=== PATIENT | male | born 1965 | race African-American/Black ===

== ENCOUNTER → 2019-06-26 | Outpatient (CLI) | payer OTHER ==
[2016-04-17 12:00] VITALS: BP 124/77
[~2019-06-26] MED LIST: ASPI-612 PO; ASPI-630 PO; ATOR10TA PO; ATOR40TA59 PO; CELE200C PO; CLIN150C14 PO; DOXY100C2 PO; FERR325T72 PO; LISI-338 PO; LISI10TA2 PO; LISI1TAB23 PO; MELO7.5T29 PO; METF850T8 PO; METO25TA4 PO; MULT-121 PO; NITR0.4T24 SL; OMEP20CA5 PO; Oxycodone Hcl/Acetaminophen PO; PHEN37.53 PO; TAMS0.4C2 PO; TICA90TA PO; TRAZ-123 PO; Warfarin Sodium MC
--- NOTE | 2019-06-26 12:34 | CARD ---
MR#: [id number] Date of Study: 06/26/2019 Ordering Physician: FABIÁN ANDERSON, Referring Physician: FABIÁN ANDERSON, Tech: Kathy Polanco [facility] APPROVED REPORT EXAM: Two-dimensional and M-mode echocardiogram with Doppler and color Doppler. Other Information Quality : AverageHR: 63bpm Rhythm : NSRTechnically limited study due to morbid obesity. INDICATION HTN, CAD. Hx: Stemi, stents, HTN, HLP, DM. 2D DIMENSIONS RVDd3.9 (2.9-3.5cm)IVSd1.5 (0.7-1.1cm) Aortic Root(2D)3.8 (2.0-3.7cm)LVDd5.1 (3.9-5.9cm) LVOT Diameter2.3 (1.8-2.4cm)PWd1.4 (0.7-1.1cm) LVDs3.4 (2.5-4.0cm)FS (%) 32.0 % SV72.6 mlLVEF(%)59.8 (>50%) Aortic Valve AoV Peak Moises.120.6cm/Catalina Peak GR.5.8mmHg LVOT Peak Moises.82.3cm/sAVA (VMAX)2.72cm2 Mitral Valve MV E Tbvijrin36.7cm/sMV DECEL QFBO560gs MV A Xzpnhsoe38.2cm/sE/A Ratio0.9 MV A [id number] Pulmonary Valve PV Peak Ohvhvtur89.6cm/s Tricuspid Valve RAP [id number] Pulmonary Vein S1 Thuadmyv76.4cm/sD2 Ydvsczuz85.7cm/s PVa [id number] LEFT VENTRICLE The left ventricle is normal size. There is moderate concentric left ventricular hypertrophy. The Eje ction Fraction is 60-65%. The left ventricular systolic function is normal and the ejection fraction is within normal range. There is normal LV segmental wall motion. Transmitral Doppler flow pattern is Grade I-abnormal relaxation pattern. RIGHT VENTRICLE The right ventricle is normal size. The right ventricular systolic function is normal. ATRIA The left atrium size is normal. The right atrium size is normal. The interatrial septum is intact wit h no evidence for an atrial septal defect or patent foramen ovale as noted on 2-D or Doppler imaging. AORTIC VALVE The aortic valve is normal in structure and function. Doppler and Color Flow revealed no significant aortic regurgitation. There is no significant aortic valvular stenosis. MITRAL VALVE The mitral valve is normal in structure and function. There is no mitral valve stenosis. Doppler and Color-flow revealed trace mitral regurgitation. TRICUSPID VALVE The tricuspid valve is normal in structure and function. Doppler and Color Flow revealed no tricuspid valve regurgitation noted. Unable to assess PA pressures. There is no tricuspid valve prolapse or ve getation. There is no tricuspid valve stenosis. PULMONIC VALVE Doppler and Color Flow revealed trace pulmonic valvular regurgitation. There is no pulmonic valvular stenosis. GREAT VESSELS The aortic root measures at the upper limits of normal. The ascending aorta is normal in size. The IV C is normal in size and collapses >50% with inspiration. PERICARDIAL EFFUSION There is no evidence of significant pericardial effusion. Critical Notification Critical Value: No <Conclusion> The Ejection Fraction is 60-65%. The left ventricular systolic function is normal and the ejection fr action is within normal range. There is normal LV segmental wall motion. There is moderate concentric left ventricular hypertrophy. Signed by : Nii Hussein, Electronically Approved : 06/26/2019 12:34:03
== END | disposition home or self-care (01) ==
LOC: ECHO 09:37
PROVIDERS: ATTEND Internal Medicine Cardiovascular Disease
DX: I11.9 Hypertensive heart disease without heart failure (principal); I25.10 Atherosclerotic heart disease of native coronary artery without angina pectoris; E78.5 Hyperlipidemia, unspecified; E11.9 Type 2 diabetes mellitus without complications; Z95.5 Presence of coronary angioplasty implant and graft
CPT/HCPCS: 93306

== ENCOUNTER 2019-12-02 22:09 | Emergency (ER) | payer OTHER ==
[~2019-12-02] VITALS: Ht 177.8 cm; Wt 150.0 kg
[2019-12-02 22:20] VITALS: BP 187/89
[2019-12-02] MEDS ORDERED: HYDROcodone/APAP 5/325MG 1 TAB TABLET PO ONE (22:45)
--- NOTE | 2019-12-02 22:55 | RAD ---
3 view left knee HISTORY: Pain and swelling AP lateral oblique views There has been prior left knee total arthroplasty. The femoral and tibial components are aligned and well seated. There is postsurgical changes of the patella. There is no lytic destructive changes seen. IMPRESSION: No acute findings. Electronically signed by: Camilo Burciaga III, MD (12/02/2019 10:52 PM) [facility]
[2019-12-02] MEDS ORDERED: HYDR-3164 PO (23:14)
--- NOTE | 2019-12-02 23:14 | PHYS DOC ---
Past Medical History Past Medical History: CAD, Diabetes-Type II, High Cholesterol, Hypertension, [place] Past Surgical History: Knee Replacement, Other Additional Past Surgical Histo: hernia repair Smoking Status: Current Every Day Smoker Alcohol Use: Occasionally Drug Use: None General Adult EDM: Chief Complaint: KNEE SWELLING HPI: HPI: Patient is a 54 year old male presents with report of left knee pain and swellin g. 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 Reports had noticed he bumped his knee on side of vehicle and felt like it was more swollen and tender. Denies any tenderness to his calves. Patient does report he is on Plavix. Denies overutilization of the knee. Reports status post total arthroplasty on that knee with Dr. Marcano. Review of Systems: Review of Systems: Constitutional: Denies fever or chills Eyes: Denies redness or eye pain HENT: Denies nasal congestion or sore throat Respiratory: Denies cough or shortness of breath Cardiovascular: Denies chest pain or palpitations GI: Denies abdominal pain, nausea, or vomiting : Denies dysuria or hematuria Musculoskeletal: Reports left knee pain and swelling; denies left calf tenderness or pain Integument: Denies rash or skin lesions Neurologic: Denies headache, focal weakness or sensory changes Complete systems were reviewed and found to be within normal limits, except as documented in this note. Current Medications: Current Medications Medications (Trade) Dose Ordered Sig/Moise Start Time Stop Time Status Last Admin Dose Admin Acetaminophen/ Hydrocodone Bitart (Lortab 5/325) 1 tab 1X ONCE 12/02/19 22:45 12/02/19 22:46 DC 12/02/19 23:01 1 TAB Allergies: Allergies: Allergies Coded Allergies Type Severity Reaction Last Updated Verified Penicillins Allergy Intermediate 01/22/14 No apple Allergy Intermediate Nausea and Vomiting 01/22/14 Yes Physical Exam: PE: Constitutional: Well developed, well nourished, no acute distress, non-toxic appearance HENT: Normocephalic, atraumatic Eyes: Conjunctiva normal, no discharge Neck: Normal range of motion, no tenderness, supple Lungs & Thorax: No respiratory distress, equal chest rise and fall Skin: Warm, dry, no erythema, no rash Extremities: ROM intact, left anterior knee tenderness on palpation with mild swelling, anterior drawer intact, no calf tenderness Neurologic: Alert and oriented X 3, no focal deficits noted Psychologic: Affect normal, judgment normal EKG: EKG: [] Radiology/Procedures: Radiology/Procedures: PROCEDURE: KNEE LEFT 3V 3 view left knee HISTORY: Pain and swelling AP lateral oblique views There has been prior left knee total arthroplasty. The femoral and tibial components are aligned and well seated. There is postsurgical changes of the patella. There is no lytic destructive changes seen. IMPRESSION: No acute findings. Electronically signed by: Cong Burciaga III, MD (12/02/2019 10:52 PM) [facility] Course & Med Decision Making: Course & Med Decision Making Pertinent Imaging studies reviewed. (See chart for details) Patient presents with left knee pain. History status post TKA. Pain addressed. Ice applied. X-ray without acute process. No signs of DVT on physical exam. Jaspreet wrap and crutches provided. Patient stable for discharge with outpatient follow-up with PCP/orthopedics. Discussed findings and plan with patient, who acknowledges understanding and agreement. Dell Disclaimer: Dell Disclaimer: This electronic medical record was generated, in whole or in part, using a voice recognition dictation system. Splinting Splinting : Location: Left knee Pre-Made Type: JASPREET bandage Pre-Proc Neuro Vasc Exam: normal Post-Proc Neuro Vasc Exam: normal, unchanged from pre-exam Departure Departure Impression: Primary Impression: Knee pain, left Qualified Codes: M25.562 - Pain in left knee Disposition: 01 HOME, SELF-CARE Condition: STABLE Referrals: NO PCP (PCP) CONG MARCANO MD Patient Instructions: Crutch Use, Wipl-cr-Lljj, Knee Pain, Htjd-ma-Llqr, Knee Wraps (Elastic Bandage) and RICE Scripts Hydrocodone/Apap 5-325 (NORCO 5-325 TABLET) 1 Each Tablet 0.5-1 TAB PO PRN Q6HRS PRN for PAIN, #10 TAB 0 Refills Prov: TESSIE KELLER DO 12/02/19 Justicifation of Admission Dx: Justifications for Admission: Justification of Admission Dx: N/A TESSIE KELLER DO Dec 02, 2019 23:14
== END 2019-12-02 23:41 | disposition home or self-care (01) ==
LOC: ER 22:09
DX: M25.562 Pain in left knee (principal); R60.0 Localized edema; I11.9 Hypertensive heart disease without heart failure; E11.9 Type 2 diabetes mellitus without complications; E78.00 Pure hypercholesterolemia, unspecified; I25.2 Old myocardial infarction; F17.200 Nicotine dependence, unspecified, uncomplicated; Z98.890 Other specified postprocedural states; Z91.018 Allergy to other foods; Z79.02 Long term (current) use of antithrombotics/antiplatelets
CPT/HCPCS: 73562; 99283

== ENCOUNTER → 2020-03-29 | Outpatient (CLI) | payer OTHER ==
[~2020-03-29] MED LIST changes: -ASPI-612 PO; +ASPI-886 PO; +CLOP75TA PO; +HYDR-3164 PO; +LISI-334 PO
[2020-03-29 14:37] LABS: BASO # 0.1 x10^3/uL (0.0-0.2); BASO % 1 % (0-3); EOS # 0.2 x10^3/uL (0.0-0.7); EOS % 3 % (0-3); HEMATOCRIT 42.8 % (39.0-53.0); HEMOGLOBIN 13.8 g/dL (13.0-17.5); LYMPH # 1.8 x10^3/uL (1.0-4.8); LYMPH % 29 % (24-48); MEAN CORPUSCULAR HEMOGLOBIN 25 pg (25-35); MEAN CORPUSCULAR HGB CONC 32 g/dL (31-37); MEAN CORPUSCULAR VOLUME 76 fL (79-100); MONO # 0.5 x10^3/uL (0.0-1.1); MONO % 8 % (0-9); NEUT # 3.6 x10^3/uL (1.8-7.7); NEUT % 60 % (31-73); PLATELET COUNT 142 x10^3/uL (140-400); RED CELL DISTRIBUTION WIDTH 18.7 % (11.5-14.5); WHITE BLOOD COUNT 6.1 x10^3/uL (4.0-11.0)
--- NOTE | 2020-03-29 14:49 | EKG ---
[facility] [address] [place] [address] Test Date: 2020-03-29 Test Time: 14:45:39 Pat Name: NEAL EMERY Department: Room: Gender: Car Salesperson: MARY Mcmahon : 1965 Requested By: CONG MARCANO Order Number: [id number] Reading MD: Evan Reyez Measurements Intervals [place] Rate: 60 P: 152 IL: 190 QRS: 163 QRSD: 94 T: 176 QT: 368 QTc: 372 Interpretive Statements SINUS RHYTHM NONSPECIFIC ST T WAVE CHANGES Electronically Signed On 03-30-2020 16:31:08 CHANGE MANAGER by Evan Reyez
[2020-03-29 14:50] LABS: ALBUMIN 3.3 g/dL (3.4-5.0); C-REACTIVE PROTEIN 1.5 mg/L (0-3.3); CALCIUM 8.7 mg/dL (8.5-10.1); GFR 93.9; POTASSIUM 4.2 mmol/L (3.5-5.1)
--- NOTE | 2020-03-29 15:48 | RAD ---
PA and lateral chest x-rays HISTORY: Preoperative assessment prior to right knee replacement. FINDINGS: Heart size normal. Mediastinal silhouette is normal. No pneumothorax, pulmonary opacities or pleural effusions. Thoracic scoliosis and mild thoracic disc osteophytes. IMPRESSION: No acute process. Electronically signed by: Clovis Pérez MD (03/29/2020 3:45 PM) [facility]
== END ==
LOC: SURGPAT 13:29
PROVIDERS: ATTEND Orthopaedic Surgery
DX: Z01.818 Encounter for other preprocedural examination (principal); M17.12 Unilateral primary osteoarthritis, left knee; M25.78 Osteophyte, vertebrae; M41.84 Other forms of scoliosis, thoracic region
CPT/HCPCS: 71046; 80048; 82040; 82306; 83036; 85025; 85610; 85730; 86140; 87641; 93005

== ENCOUNTER → 2020-04-15 | Outpatient (CLI) | payer OTHER | LOC: LAB 14:12 | PROVIDERS: ATTEND Orthopaedic Surgery | DX: Z01.812 Encounter for preprocedural laboratory examination (principal); Z20.828 Contact with and (suspected) exposure to other viral communicable diseases | CPT/HCPCS: U0003 ==

== ENCOUNTER 2020-04-19 08:42 | Inpatient (IN) | payer OTHER ==
[2020-04-19] VITALS (8 sets, daily range): BP systolic 103–158; BP diastolic 47–95
[~2020-04-19] VITALS: Ht 175.3 cm; Wt 154.2 kg
[~2020-04-19 08:42] MED LIST changes: +ACETAMINOPHEN 500 MG TABLET PO PRN; +CELECOXIB 100 MG CAPSULE. PO PRN; +CLINDAMYCIN 900MG PREMIX 50 ML IV PRN; +MORPHINE SULFATE 5 MG, KETOROLAC 30MG VIAL 30 MG, ROPIVacaine 0.5% PF 60 ML, EPINEPHrin... INT ART ONE; +ROCURONIUM 50 MG/5 ML VIAL. ONE; +TRANEXAMIC ACID 1,000 MG in IV NS 50ML -- 1ST BAG INJ ONE; +TRANEXAMIC ACID 1,000 MG in IV NS 50ML -- 2ND BAG INJ ONE; +fentaNYL PF VIAL 100 MCG/2 ML VIAL ONE
[2020-04-19] MEDS ORDERED: ONDANSETRON PF 4 MG/2 ML VIAL. ONE (08:43)
[2020-04-19] MEDS ORDERED: PROPOFOL 10 MG/ML (20ML) VIAL. IV ONE (08:43)
[2020-04-19] MEDS ORDERED: LIDOCAINE 2% PF 5 ML VIAL. ONE ×2 (08:43→13:31)
[2020-04-19] MEDS ORDERED: DEXAMETHASONE SOD PHOS 4 MG/ML VIAL ONE (08:43)
[2020-04-19] MEDS ORDERED: SEVOFLURANE > 120 MINUTES. IH ONE (08:43)
[2020-04-19] MEDS ORDERED: SUCCINYLCHOLINE 200 MG/10 ML VIAL. ONE (08:49)
[2020-04-19] MEDS: IV RINGERS,LACTATED 1000ML 1,000 ML IV SCH ×2 (09:37→14:13)
[2020-04-19] MEDS: INSULIN LISPRO 100 UNIT/ML 3ML VIAL for OP,RR ONLY. SQ PRN ×2 (09:38→13:47)
--- NOTE | 2020-04-19 09:54 | PDOC1 ---
History and Physical Date of Admission Date of Admission DATE: 04/19/20 TIME: 09:49 Identification/Chief Complaint Chief Complaint Right knee osteoarthritis pain Source Source: Chart review, Patient History of Present Illness History of Present Illness 54-year-old man familiar to me with right knee osteoarthritis, unrelieved with nonoperative treatment. At this point, he is locating increased right knee pain that is now interfering with his quality of life and making it difficult to participate in desired activities. Unable to walk for exercise. He has failed modified activity, brace, NSAID's, and steroid injections. He had a left total knee arthroplasty previously which has done well other than he had a washout early for infection which resolved with the washout and antibiotics. Past Medical History Past Medical History Diabetes mellitus. Hypertension. High cholesterol. PSA 08/26. STEMI 04/27. Pneumovax 04/27. Cardiovascular: HTN, Hyperlipidemia Pulmonary: Asthma GI: GERD Heme/Onc: No pertinent hx Hepatobiliary: No pertinent hx Psych: No pertinent hx Musculoskeletal: Osteoarthritis Rheumatologic: No pertinent hx Infectious disease: No pertinent hx Renal/: No pertinent hx Endocrine: Diabetes Past Surgical History Past Surgical History: Hernia Repair, Total knee replacement Family History Family History: Cancer, Hypertension Social History Smoke: Quit ALCOHOL: occassional Drugs: None Current Medications Current Medications Current Medications Morphine Sulfate 5 mg/Ketorolac Tromethamine 30 mg/Ropivacaine 60 ml/Epinephrine HCl 0.5 mg/Sodium Chloride 100 ml @ 100 mls/hr 1X ONCE INT ART ; Start 04/19/20 at 08:00; Stop 04/19/20 at 08:59; Status DC Acetaminophen (Tylenol) 1,000 mg 1X PREOP PRN PO PRIOR TO PROCEDURE Last administered on 04/19/20at 09:29; Start 04/19/20 at 06:00; Stop 04/19/20 at 18:00 Clindamycin Phosphate 50 ml @ 100 mls/hr 1X PREOP PRN IV PRIOR TO PROCEDURE; Start 04/19/20 at 06:00; Stop 04/19/20 at 18:00 Tranexamic Acid 1000 mg/Sodium Chloride 60 ml @ 60 mls/hr 1X PERIOP ONCE INJ ; Start 04/19/20 at 06:00; Stop 04/19/20 at 06:59; Status DC Tranexamic Acid 1000 mg/Sodium Chloride 60 ml @ 60 mls/hr 1X PERIOP ONCE INJ ; Start 04/19/20 at 08:00; Stop 04/19/20 at 08:59; Status DC Celecoxib (CeleBREX) 200 mg OC PROC PRN PO PRE-OP Last administered on 04/19/20at 09:30; Start 04/19/20 at 06:00; Stop 04/19/20 at 18:00 Insulin Human Lispro (HumaLOG VIAL for OP,RR ONLY) 0-10 units PRN Q1HR PRN SQ PER PROTOCOL Last administered on 04/19/20at 09:38; Start 04/19/20 at 08:45; Stop 04/20/20 at 08:44 Rocuronium Elsberry (Zemuron) 50 mg STK-MED ONCE .ROUTE ; Start 04/19/20 at 08:42; Stop 04/19/20 at 08:42; Status DC Fentanyl Citrate (Fentanyl 2ml Vial) 100 mcg STK-MED ONCE .ROUTE ; Start 04/19/20 at 08:42; Stop 04/19/20 at 08:43; Status DC Sevoflurane (Ultane) 90 ml STK-MED ONCE IH ; Start 04/19/20 at 08:43; Stop 04/19/20 at 08:43; Status DC Propofol (Diprivan) 200 mg STK-MED ONCE IV ; Start 04/19/20 at 08:43; Stop 04/19/20 at 08:43; Status DC Lidocaine HCl (Lidocaine Pf 2% Vial) 5 ml STK-MED ONCE .ROUTE ; Start 04/19/20 at 08:43; Stop 04/19/20 at 08:43; Status DC Dexamethasone Sodium Phosphate (Decadron) 4 mg STK-MED ONCE .ROUTE ; Start 04/19/20 at 08:43; Stop 04/19/20 at 08:43; Status DC Ondansetron HCl (Zofran) 4 mg STK-MED ONCE .ROUTE ; Start 04/19/20 at 08:43; Stop 04/19/20 at 08:43; Status DC Succinylcholine Chloride (Anectine) 200 mg STK-MED ONCE .ROUTE ; Start 04/19/20 at 08:49; Stop 04/19/20 at 08:49; Status DC Ringer's Solution 1,000 ml @ 100 mls/hr Q10H IV Last administered on 04/19/20at 09:37; Start 04/19/20 at 09:30 Active Scripts Active Metoprolol Tartrate 25 Mg Tablet 1 Tab PO BID Reported Atorvastatin Calcium 40 Mg Tablet 80 Mg PO HS Lisinopril 20 Mg Tablet 20 Mg PO DAILY Clopidogrel (Clopidogrel Bisulfate) 75 Mg Tablet 75 Mg PO DAILY Metformin Hcl 850 Mg Tablet 500 Mg PO BID Aspirin 81 Mg Tab.chew 81 Mg PO Multiple Vitamins (Multivitamin) 1 Each Tablet 1 Each PO last dose 01/22/14 at 9 am next dose due 01/23/14 at 9 am Trazodone Hcl 100 Mg Tablet 100 Mg PO PRN QHS PRN Not given this hospitalization. May resume at home as ordered by doctor. Prilosec (Omeprazole) 20 Mg Capsule.dr 20 Mg PO DAILY Not given this hospitalization Protonix substituted. May resume at home as ordered by doctor. Allergies Allergies: Coded Allergies: Penicillins (Unverified Allergy, Intermediate, 04/19/20) apple (Verified Allergy, Intermediate, Nausea and Vomiting, 04/19/20) ANY HIGH ACID FRUITS) ROS Review of System ENT: Frequent headaches denies. Sudden loss of vision denies. Hearing loss none. Ringing in ears none. Nose bleeds no prior episodes. CARDIOLOGY: Palpitations none. Chest pain none. Claudication none. CONSTITUTIONAL: Fever denies . Chills denies. Weight gain denies. Loss of appetite denies. Fatigue denies. RESPIRATORY: Shortness of breath denies. Coughing up blood denies. Persistent cough none. Wheezing none. Orthopnea none. GASTROENTEROLOGY: Black, tarry stool denies. Heartburn denies. Blood in stool none. Diarrhea denies. Vomiting none. Black stools denies. UROLOGY: Blood in urine denies. Urinary frequency none. Urinary urgency none. Burning on urination denies. MUSCULOSKELETAL: Non-healing sores on the legs or feet denies. Swelling of the feet, hands, ankles and /or legs denies. Calf cramping with walking denies. Numbness of the feet or hands denies. DERMATOLOGY: Sores that do not heal denies. Rash none. Bruising denies. NEUROLOGY: Dizziness/lightheadedness denies. Double vision, temporary blindness denies. Speech abnormality none. Loss of consciousness none. HEMATOLOGY/LYMPH: Anemia denies. Physical Exam General: Alert, Cooperative HEENT: Atraumatic Lungs: Normal air movement Heart: RRR Abdomen: Soft Extremities: Other (The RIGHT knee shows a mildly antalgic gait. There is varus alignment. No masses. No detectable effusion. Tenderness on the joint lines. Range of motion is 3-105 degrees. There is crepitus with range of motion, and pain at the extremes of motion. The knee is stable to varus and valgus stress without subluxation or laxity. Muscle strength is slightly weak for the quadriceps 4+/5 which may be due to pain or avoidance, and does not seem neurogenic, and the muscle tone and bulk is slightly decreased. The hamstring strength is 5/5. The skin is normal with no scars, rashes, lesions or ulcers. Light touch sensation is intact. No edema and no varicosities. Dorsalis pedis pulse is intact and capillary refill is normal.) Skin: No significant lesion Neuro: Normal speech, Sensation intact Vitals Vitals Vital Signs Date Time Temp Pulse Resp B/P (MAP) Pulse Ox O2 Delivery O2 Flow Rate FiO2 04/19/20 09:25 98.5 68 20 98 98.5 04/19/20 09:20 185/90 Room Air Labs Labs Laboratory Tests Test 04/19/20 09:22 Glucose (Fingerstick) 145 mg/dL (70-99) Laboratory Tests Test 04/19/20 09:22 Glucose (Fingerstick) 145 mg/dL (70-99) Images Images [facility] [address] [place] [address] IMAGING REPORT Signed PATIENT: NEAL EMERY ACCOUNT: [id number] : 1965 LOCATION: [facility] AGE: 54 SEX: M EXAM STATUS: REG CLI ORD. PHYSICIAN: CONG MARCANO MD REASON: Rt knee pain and f/u left TKA in 2013 PROCEDURE: KNEE STANDING BILAT AP EXAM: Bilateral knees, 3 views. HISTORY: Pain. COMPARISON: 03/30/2019 FINDINGS: 3 views of both knees are obtained. There is a left knee arthroplasty in expected position. There is a small left knee effusion. There is enthesopathy along the left patella and there are corticated ossicles along the anterior left tibial metaphysis. There is severe medial compartment joint space narrowing and spurring involving the right knee. There is associated right genu varus. There is also mild right patellofemoral compartment spurring and trace right knee joint fluid. There is enthesopathy along the right patella. There are right knee joint loose bodies. IMPRESSION: 1. Left knee arthroplasty in expected position. There is a small left knee effusion which is fairly stable compared to the prior study. 2. Severe medial and mild patellofemoral compartment osteoarthritis of the right knee with joint loose bodies and genu varus. Electronically signed by: Silvia Wayne MD (03/10/2020 10:52 AM) [id number] DICTATED and SIGNED BY: SILVIA WAYNE MD DATE: 03/10/201051 VTE Prophylaxis Ordered VTE Prophylaxis Devices: Yes VTE Pharmacological Prophylaxi: Yes Assessment/Plan Assessment/Plan He has osteoarthritis of his right knee. We have previously discussed the waqas hamilton history of the condition as well as the risks, benefits, and alternatives to treatment. Given his failure of nonoperative measures and continued severe pain with loss of function, my recommendation is surgery. Plan for right total knee arthroplasty. We discussed the potential risks of infection, neurovascular injury, fracture, bleeding, blood clots, malalignment, need for revision surgery, or other potential surgical or anesthetic complications. I recommended the robotic NAVIO instrumentation and we discussed my reasoning. We also discussed postoperative treatment and expectations including dental antibiotic prophylaxis and residual numbness over the knee. All of his questions were answered and he desires to proceed with total knee replacement. He is here today for elective right total knee arthroplasty with robotic assistance. Justifications for Admission Other Justification CONG MARCANO MD Apr 19, 2020 09:54
[2020-04-19] MEDS ORDERED: VANCOMYCIN 1 GM VIAL. ONE ×2 (10:01→10:02)
[2020-04-19] MEDS ORDERED: TOBRAMYCIN POWDER 1.2 GM VIAL. ONE (10:02)
[2020-04-19] MEDS ORDERED: MORPHINE SULFATE 2 MG/ML VIAL. IV PRN (10:30)
[2020-04-19] MEDS ORDERED: ONDANSETRON PF 4 MG/2 ML VIAL. IV PRN (10:30)
[2020-04-19] MEDS ORDERED: HYDROmorphone 2 MG/ML VIAL IV PRN (10:30)
[2020-04-19] MEDS ORDERED: IV RINGERS,LACTATED 1000ML 1,000 ML IV SCH (10:30)
[2020-04-19] MEDS ORDERED: fentaNYL PF VIAL 100 MCG/2 ML VIAL IV PRN (10:30)
[2020-04-19] MEDS ORDERED: PROCHLORPERAZINE 10 MG/2 ML VIAL. IV PRN (10:30)
[2020-04-19] MEDS ORDERED: GLYCOPYRROLATE 1 MG/5 ML VIAL. ONE (11:09)
--- NOTE | 2020-04-19 13:17 | PDOC4 ---
Operative Note Operative Note Date of Procedure: April 19, 2020 Pre-Op Diagnosis: Unilateral primary osteoarthritis, right knee. M17.11 Post-Op Diagnosis: same Procedure: right total knee arthroplasty with patella resurfacing, robotic assisted, CPT 11065 Surgeon: Cong Brewer MD Hide Cooking Operator: ERNESTINA Avila Anesthesia: General EBL: 200 mL Specimens Obtained: right knee bone and soft tissue Complications: none Drains: Hemovac plus pain catheter Tourniquet time: 90 Minutes Tourniquet Pressure: 350 mm Hg Indications for Procedure: Knee arthritis pain, affecting quality of life, unrelieved by nonoperative management Findings: Severe osteoarthritis with bone on bone contact medially with full thickness cartilage loss in the patellofemoral and lateral compartments Implants: Ceron [employer] Nephew Journey II Total Knee System, Size 6 right bicruciate stabilized Journey II BCS Oxinium femoral component, size 6 right Journey nonpor ous tibial baseplate, size 5-6 13 mm right Journey II BCS XLPE articular insert, 38 mm oval Ana II resurfacing patellar component Procedure in Detail: The patient was identified in the preoperative holding area, and the correct right lower extremity was marked by me. The patient was taken to the operating room where the patient was anesthetized by the Department of Anesthesia. Preoperative antibiotics were given intravenously. Tranexamic acid 1 g was given intravenously for intraoperative hemostasis. A "time-out" procedure was performed. The patient was positioned supine on the operative table with a tourniquet on the upper right thigh. A right hip bump and heel bump were attached to the operating table for later intraoperative positioning. The right lower limb was thoroughly scrubbed, then sterile Chloraprep solution was applied, and the limb was draped in sterile fashion. The operating team wore exhaust ventilated hoods with Ule Personal Protection Toga Zippered Peel-Away protection system. An impervious stockinet and an adhesive drape were used such that the skin was entirely covered. The limb was exsanguinated with an Esmarch bandage, and the tourniquet was inflated. A midline skin incision was made with a scalpel using the patella and tibial tubercle as landmarks. Electrocautery was used for hemostasis. My family readiness support assistant used rake retractors and a laparotomy sponge. A medial parapatellar arthrotomy incision was used with extension into the distal quadriceps tendon. The patella was retracted laterally and Hohmann retractors were now used by my family readiness support assistant. Excess synovium, the menisci, and the cruciate ligaments were resected sharply. A periarticular multimodal ropivacaine anesthetic injection was used in the suprapatellar pouch and distal quadriceps muscle. The patella was everted and exposed. The patella thickness was measured with a caliper, and then cut freehand with a saw, using caliper measurements to assess the resection. The lateral retinaculum was partially released from the lateral patella using electrocautery. Rongeurs were used to make sure there were no remaining exposed patellar osteophytes medially or laterally. The patella was sized, and then drilled for an oval three-peg patella component. The tibial tracker array for the NAVIO system was applied to the tibial crest four finger breadths below the tibial tubercle, using percutaneous incisions and bicortical pins. The femoral tracker array was applied outside of the original incision using two separate stab incisions using bicortical pins. Checkpoint verification pins were applied to the femur and tibia. Using the point probe, the medial and lateral malleoli were localized and the locations were stored. The center of the tibia was noted at the anterior cruciate ligament insertion and stored. The center of the femur was marked at the intersection of Whitesidess line with the transepicondylar axis. The hip center calculation was performed with range of motion of the hip. The femur neutral position was identified, and simulated weightbearing was performed with axial compression on the foot. Range of motion without stress was performed and the data collected. Range of motion with valgus stress, and range of motion with varus stress data collection was also performed. Rotational references include the Whitesidess line, and the trans-epicondylar axis. The femoral articular surface was now mapped in 3 dimensions using the point probe and digital data collected. The tibial condyle articular surfaces and cortical edges were mapped in 3 dimensions using the point probe including the medial and lateral tibial plateau. Implant planning was now performed on-screen with manipulation of the implant sizes, cut thicknesses and gaps, component rotation, component flexion/extension and component varus/valgus until satisfactory ligament balance, alignment and stability of the knee was expected throughout the range of motion. A medial release was required, using a 10 blade scalpel, and a Garcia elevator to elevate the medial structures from the upper medial tibia. Medial tibial osteophytes were also resected for improved balance. My family readiness support assistant held a Hohmann retractor, a medial Z-retractor, and an [facility] retractor to protect the medial and lateral collateral ligaments, the patellar tendon, the skin and the other soft tissues. The point probe was used to confirm the location of the checkpoint verification pins. The distal femoral surface was now prepared using the Anspach jorge with footpedal, and the NAVIO handpiece for bone removal to the previously planned distal femoral resection. The crosshairs at the pin locations were marked by using a mallet and the point probe for definitive location. A 5-in-1 Journey II cutting guide was then applied and the position was checked with the virtual nelli wing from the NAVIO to ensure proper placement as the pins were applied. The posterior, anterior, and all chamfer cuts were made with the oscillating saw. Excess bone was removed with an osteotome and rongeurs. The tibial cutting guide was applied, positioned using the NAVIO virtual nelli wing, and secured to the upper tibia using three pins at the previously planned location. The virtual nelli wing was used to confirm the resection depth, slope and coronal alignment. The upper tibia was cut made with an oscillating saw. My family readiness support assistant held Hohmann retractors and a posterior cruciate ligament retractor to protect the medial and lateral collateral ligaments, the patellar tendon, the skin, the peroneal nerve and the other soft tissues. The upper tibia was sized with a trial baseplate. The posterior compartment was cleared of osteophytes and loose bodies. The periarticular anesthetic injection was used in the posterior compartment. The box cut for a posterior stabilized component was made. A preliminary reduction was performed with a trial femur, trial tibial baseplate and trial polyethylene. The NAVIO system was used to confirm range of motion, and postoperative stressed gap assessment. The stability was assessed using different thicknesses of tibial articular surface to find satisfactory stability and good range of motion. I did not feel that the robotic assessment had rese cted enough distal femur, and the knee remained in about 7 to 10 degrees of flexion with gravity passive extension. I revised the distal femoral cut, resecting an additional 2 mm of distal femur, and then continuing with revision associated preparation of the distal femur including the chamfer cuts, and the notch cut. The rotation of the tibial component was marked on the upper tibia. Final trial reduction was now performed verifying patella tracking and tibiofemoral stability and alignment. The bone pins and tracker arrays were removed, and the checkpoint verification pins were removed. The tibia preparation was completed with a drill, saw, and fin punch at the previously noted rotation. The final implants were verified and opened. Outer gloves were changed by the operating team. Betadine lavage was used. The bone cuts were irrigated with saline using the [employer] InterPulse device and then dried with suction and laparotomy sponges. Two packages of Ceron + Nephew Rally HV bone cement were mixed in powdered form with Vancomycin 1gm and Tobramycin 1.2 gm, and then vacuum-mixed with the monomer, and placed into a cement gun. The cut surfaces of the bone were thoroughly dried with suction and with laparotomy sponges for cement interdigitation. The final components were cemented into place. The knee was kept at full extension while the cement hardened, and excess cement was removed. Tranexamic acid 1 g was redosed intravenously for additional intraoperative hemostasis. The tourniquet was released, and electrocautery was used for hemostasis. A final periarticular anesthetic injection was used for pain relief. The bone pin sites on the tibial crest were closed with #3-0 Nylon sutures. A final check of [id number] and stability was made, and the polyethylene implant final size was chosen. The polyethylene implant was secured to the tibial baseplate, and the knee was reduced a final time and range of motion and stability was confirmed. Thorough irrigation was used. A pain catheter, and a 10 Fr Hemovac were inserted. Topical Vancomycin 1 gm was used during the closure. The arthrotomy was closed with interrupted [id number] #1 Vicryl suture. The subcutaneous tissues were approximated initially with #2-0 Vicryl inverted interrupted sutures by my family readiness support assistant. Next the subcuticular layer was approximated in a running fashion with #3-0 STRATAFIX suture by my family readiness support assistant. The skin incision was then covered and reinforced by my family readiness support assistant with Acticoat, followed by a MORENITA single use negative pressure wound therapy dressing Soft roll and an Jaspreet wrap were applied. Needle and sponge counts were correct. There were no apparent complications. The patient returned to the recovery room in stable condition. CONG BREWER MD Apr 19, 2020 13:17
[2020-04-19] MEDS ORDERED: traZODone 100 MG TABLET. PO PRN (13:30)
[2020-04-19] MEDS ORDERED: CALCIUM CARBONATE 500 MG TAB.CHEW PO PRN (13:30)
[2020-04-19] MEDS ORDERED: ZOLPIDEM 5 MG TABLET. PO PRN (13:30)
[2020-04-19] MEDS ORDERED: PROCHLORPERAZINE 5 MG TABLET. PO PRN (13:30)
[2020-04-19] MEDS ORDERED: METOCLOPRAMIDE HCL 10 MG/2 ML VIAL. IVP PRN (13:30)
[2020-04-19] MEDS ORDERED: 0.9 % SODIUM CHLORIDE 10 ML DISP.SYRIN. IV PRN (13:30)
[2020-04-19] MEDS ORDERED: MORPHINE SULFATE 4 MG/ML VIAL. IVP PRN (13:30)
[2020-04-19] MEDS ORDERED: DEXTROSE 50% 25 GM / 50ML DISP.SYRIN. IV PRN (13:30)
[2020-04-19] MEDS ORDERED: IV NORMAL SALINE 1000ML BAG 1,000 ML IV SCH (13:30)
[2020-04-19] MEDS ORDERED: diphenhydrAMINE 50 MG/ML VIAL IVP PRN (13:30)
[2020-04-19] MEDS ORDERED: fentaNYL PF VIAL 100 MCG/2 ML VIAL IVP PRN (13:30)
--- NOTE | 2020-04-19 13:54 | RAD ---
INDICATION: Reason: POST OP / Spl. Instructions: / History: COMPARISON: March 10, 2020 IMPRESSION: Right knee: 2 views obtained. Knee arthroplasty changes with drain in the soft tissues. Air and edema within the soft tissues and joint as typically seen postoperatively. Electronically signed by: Gordon Molina MD (04/19/2020 1:51 PM) [id number]
[2020-04-19] MEDS: fentaNYL PF VIAL 100 MCG/2 ML VIAL IV PRN ×4 (13:59→14:43)
[2020-04-19] MEDS ORDERED: INSULIN LISPRO 100 UNIT/ML 3ML VIAL for OP,RR ONLY. SQ ONE ×2 (14:00)
[2020-04-19] MEDS ORDERED: fentaNYL PF VIAL 100 MCG/2 ML VIAL ONE (14:16)
--- NOTE | 2020-04-19 15:15 | NUR ---
Arrived to unit by bed from PACU. Awake but sleepy. Able to answer questions appropriately. Right leg elevated on pillow with ice pack. Dressing on right knee is d/i with IAC and Hemovac drain. Able to wiggle toes easily, warm to touch and pedal pulses + bilaterally. IVF's intact and infusing. O2 at 2l per n/c. JAMEEL and SCD on left leg and AGAPITO on right foot. Oriented to room and controls. Eating ice chips. Mother and at bedside. Cont. monitor.
[2020-04-19] MEDS: oxyCODONE/APAP 10/325 1 TAB TABLET PO PRN ×2 (16:06→20:43)
[2020-04-19] MEDS: PANTOPRAZOLE 40 MG TABLET.DR. PO SCH (16:07)
[2020-04-19] MEDS: LISINOPRIL 20 MG TABLET PO SCH (16:07)
[2020-04-19] MEDS: CLINDAMYCIN 900MG PREMIX 50 ML IV SCH ×2 (16:09→22:50)
[2020-04-19] MEDS: metFORMIN 500 MG TABLET PO SCH (17:05)
[2020-04-19] MEDS: INSULIN LISPRO 300 UNITS/3 ML VIAL. SQ SCH (17:29)
[2020-04-19] MEDS: ONDANSETRON ODT 4 MG TAB.RAPDIS. PO SCH (18:00)
[2020-04-19] MEDS: ONDANSETRON PF 4 MG/2 ML VIAL. IVP SCH (18:00)
--- NOTE | 2020-04-19 18:00 | NUR ---
Zofran po or IV not given. Tolerating diet well.
[2020-04-19] MEDS: KETOROLAC 30MG VIAL 30 MG, BUPIVACAINE MPF 0.25% 20 ML, EPINEPHrine 0.5 MG in TOTAL VOL... INT ART SCH (18:21)
[2020-04-19] MEDS: ASPIRIN ENTERIC COATED 325 MG TABLET.DR. PO SCH (20:43)
[2020-04-19] MEDS: ATORVASTATIN CALCIUM 40 MG TABLET. PO SCH (20:43)
[2020-04-19] MEDS: METOPROLOL TART IMMED RELEASE 25 MG TABLET. PO SCH (20:45)
[2020-04-20 03:00] VITALS: BP 148/92
[2020-04-20] MEDS: oxyCODONE/APAP 10/325 1 TAB TABLET PO PRN ×5 (03:30→20:41)
[2020-04-20] MEDS: CLINDAMYCIN 900MG PREMIX 50 ML IV SCH (04:31)
[2020-04-20] MEDS: IV RINGERS,LACTATED 1000ML 1,000 ML IV SCH (05:30)
[2020-04-20] MEDS ORDERED: MAGNESIUM HYDROXIDE 2,400 MG/30 ML ORAL.SUSP. PO PRN (06:00)
[2020-04-20] MEDS: PANTOPRAZOLE 40 MG TABLET.DR. PO SCH (06:20)
[2020-04-20] MEDS: KETOROLAC 30MG VIAL 30 MG, BUPIVACAINE MPF 0.25% 20 ML, EPINEPHrine 0.5 MG in TOTAL VOL... INT ART SCH (06:21)
[2020-04-20] MEDS: ONDANSETRON PF 4 MG/2 ML VIAL. IVP SCH ×3 (06:21→12:00)
[2020-04-20] MEDS: ONDANSETRON ODT 4 MG TAB.RAPDIS. PO SCH ×3 (06:21→12:00)
[2020-04-20 06:52] VITALS: BP 139/82
[2020-04-20] MEDS: INSULIN LISPRO 300 UNITS/3 ML VIAL. SQ SCH ×3 (08:00→16:34)
[2020-04-20 08:04] VITALS: BP 139/88
[2020-04-20] MEDS: LISINOPRIL 20 MG TABLET PO SCH (08:11)
[2020-04-20] MEDS: METOPROLOL TART IMMED RELEASE 25 MG TABLET. PO SCH ×2 (08:12→20:41)
[2020-04-20] MEDS: ASPIRIN ENTERIC COATED 325 MG TABLET.DR. PO SCH ×2 (08:12→20:40)
[2020-04-20] MEDS: SENNOSIDES/DOCUSATE 8.6/50MG TABLET. PO SCH (08:12)
[2020-04-20] MEDS: CLOPIDOGREL BISULFATE 75 MG TABLET PO SCH (08:12)
[2020-04-20] MEDS: metFORMIN 500 MG TABLET PO SCH ×2 (08:12→16:31)
[2020-04-20] MEDS: MULTIVITAMIN with MINERAL TABLET. PO SCH (08:12)
[2020-04-20] MEDS: CELECOXIB 100 MG CAPSULE. PO SCH (08:12)
[2020-04-20] MEDS ORDERED: ONDANSETRON PF 4 MG/2 ML VIAL. IVP PRN (12:00)
[2020-04-20] MEDS ORDERED: ONDANSETRON ODT 4 MG TAB.RAPDIS. PO PRN (12:00)
[2020-04-20] MEDS: CYCLOBENZAPRINE 10 MG TABLET. PO PRN (13:59)
[2020-04-20] MEDS ORDERED: BISACODYL 10 MG SUPP.RECT. PR PRN (16:00)
--- NOTE | 2020-04-20 18:05 | PDOC ---
PROGRESS NOTES Date of Service DATE: 04/20/20 TIME: 18:04 Subjective Subjective Doing well, but still requiring IV pain meds for pain, in addition to oral meds. Objective Vital Signs Vital Signs Date Time Temp Pulse Resp B/P (MAP) Pulse Ox O2 Delivery O2 Flow Rate FiO2 04/20/20 16:31 Room Air 04/20/20 08:12 64 139/88 04/20/20 06:52 98.5 20 93 98.5 04/19/20 21:43 2.0 Physical Exam MORENITA dressing working. MORENITA has spots of bloody drainage. Hemovac and pain catheter have been removed. Calf soft and NT. Homans neg. Able to DF and plantarflex foot with no evidence of neurovascular injury nor compartment syndrome. No blisters. Minimal erythema. Moderate swelling as expected. Labs Laboratory Tests Test 04/19/20 09:22 04/19/20 13:31 04/19/20 17:02 04/19/20 21:27 Glucose (Fingerstick) 145 mg/dL (70-99) 191 mg/dL (70-99) 172 mg/dL (70-99) 163 mg/dL (70-99) Test 04/20/20 07:14 04/20/20 12:05 04/20/20 16:34 Glucose (Fingerstick) 112 mg/dL (70-99) 146 mg/dL (70-99) 148 mg/dL (70-99) Laboratory Tests Test 04/19/20 21:27 04/20/20 07:14 04/20/20 12:05 04/20/20 16:34 Glucose (Fingerstick) 163 mg/dL (70-99) 112 mg/dL (70-99) 146 mg/dL (70-99) 148 mg/dL (70-99) Imaging Postop x-rays and report reviewed by me. Satisfactory TKA without apparent complications. PATIENT: NEAL EMERY ACCOUNT: [id number] : 1965 LOCATION: SURG AGE: 54 SEX: M EXAM STATUS: REG [facility] [place] ORD. PHYSICIAN: CONG MARCANO MD REASON: POST OP PROCEDURE: KNEE RIGHT 2V INDICATION: Reason: POST OP / Spl. Instructions: / History: COMPARISON: March 10, 2020 IMPRESSION: Right knee: 2 views obtained. Knee arthroplasty changes with drain in the soft tissues. Air and edema within the soft tissues and joint as typically seen postoperatively. Electronically signed by: Edith Molina MD (04/19/2020 1:51 PM) [id number] DICTATED and SIGNED BY: EDITH MOLINA MD DATE: 04/19/20 [id number] Assessment Assessment POD 1 after TKA Plan Plan of Care Needs to stay in hospital for pain control at this time. Continue DVT prophylaxis and PT. Discharge planning. Justicifation of Admission Dx: Justifications for Admission: Justification of Admission Dx: N/A CONG MARCANO MD Apr 20, 2020 18:05
[2020-04-20 18:48] VITALS: BP 125/70
[2020-04-20] MEDS: ATORVASTATIN CALCIUM 40 MG TABLET. PO SCH (20:40)
[2020-04-21] MEDS: oxyCODONE/APAP 10/325 1 TAB TABLET PO PRN ×5 (05:04→20:16)
[2020-04-21 06:00] VITALS: BP 112/69
[2020-04-21] MEDS: PANTOPRAZOLE 40 MG TABLET.DR. PO SCH (06:18)
[2020-04-21 06:19] VITALS: BP 103/55
[2020-04-21] MEDS: CELECOXIB 100 MG CAPSULE. PO SCH (07:47)
[2020-04-21] MEDS: CLOPIDOGREL BISULFATE 75 MG TABLET PO SCH (07:47)
[2020-04-21] MEDS: MULTIVITAMIN with MINERAL TABLET. PO SCH (07:47)
[2020-04-21] MEDS: SENNOSIDES/DOCUSATE 8.6/50MG TABLET. PO SCH (07:47)
[2020-04-21] MEDS: ASPIRIN ENTERIC COATED 325 MG TABLET.DR. PO SCH ×2 (07:47→20:16)
[2020-04-21] MEDS: metFORMIN 500 MG TABLET PO SCH ×2 (07:50→17:32)
[2020-04-21] MEDS: LISINOPRIL 20 MG TABLET PO SCH (07:51)
[2020-04-21] MEDS: METOPROLOL TART IMMED RELEASE 25 MG TABLET. PO SCH ×2 (07:51→20:18)
[2020-04-21] MEDS: INSULIN LISPRO 300 UNITS/3 ML VIAL. SQ SCH ×3 (07:56→16:47)
[2020-04-21] MEDS ORDERED: BENZOCAINE/MENTHOL LOZENGE. PO PRN (08:00)
--- NOTE | 2020-04-21 11:59 | NUR ---
Pt c/o open sore near the drain site dressing. Examined sore, looks like skin tear. When asked if scratched stated "not sure." Placed pink foam dressing.
[2020-04-21 14:17] LABS: HEMATOCRIT 39.1 % (39.0-53.0); HEMOGLOBIN 12.1 g/dL (13.0-17.5)
[2020-04-21] MEDS: CYCLOBENZAPRINE 10 MG TABLET. PO PRN (15:52)
[2020-04-21 17:52] VITALS: BP 159/73
--- NOTE | 2020-04-21 18:12 | PDOC ---
PROGRESS NOTES Date of Service DATE: 04/21/20 TIME: 18:12 Subjective Subjective Doing a little better today. Still max assist to get OOB. Objective Vital Signs Vital Signs Date Time Temp Pulse Resp B/P (MAP) Pulse Ox O2 Delivery O2 Flow Rate FiO2 04/21/20 17:52 98.2 73 20 159/73 (101) 95 Room Air 98.2 04/19/20 21:43 2.0 Physical Exam MORENITA dressing with increased bloody drainage. May need MORENITA dressing change soon. Calf soft and nontender. Homans neg. Labs Laboratory Tests Test 04/19/20 21:27 04/20/20 07:14 04/20/20 12:05 04/20/20 16:34 Glucose (Fingerstick) 163 mg/dL (70-99) 112 mg/dL (70-99) 146 mg/dL (70-99) 148 mg/dL (70-99) Test 04/20/20 21:01 04/21/20 06:38 04/21/20 11:59 04/21/20 14:04 Glucose (Fingerstick) 158 mg/dL (70-99) 177 mg/dL (70-99) 137 mg/dL (70-99) Hemoglobin 12.1 g/dL (13.0-17.5) Hematocrit 39.1 % (39.0-53.0) Mean Corpuscular Hemoglobin Concent 31 g/dL (31-37) Test 04/21/20 16:45 Glucose (Fingerstick) 141 mg/dL (70-99) Laboratory Tests Test 04/20/20 21:01 04/21/20 06:38 04/21/20 11:59 04/21/20 14:04 Glucose (Fingerstick) 158 mg/dL (70-99) 177 mg/dL (70-99) 137 mg/dL (70-99) Hemoglobin 12.1 g/dL (13.0-17.5) Hematocrit 39.1 % (39.0-53.0) Mean Corpuscular Hemoglobin Concent 31 g/dL (31-37) Test 04/21/20 16:45 Glucose (Fingerstick) 141 mg/dL (70-99) Assessment Assessment POD 2 after TKA Plan Plan of Care Discharge planning, likely tomorrow. Continue PT twice a day, and DVT prophylaxi s. Needs continued PT and OT for safe discharge to home. Justicifation of Admission Dx: Justifications for Admission: Justification of Admission Dx: N/A CONG MARCANO MD Apr 21, 2020 18:12
[2020-04-21] MEDS: ATORVASTATIN CALCIUM 40 MG TABLET. PO SCH (20:17)
[2020-04-22] MEDS: oxyCODONE/APAP 10/325 1 TAB TABLET PO PRN ×4 (05:01→17:36)
[2020-04-22 06:15] VITALS: BP 148/65
[2020-04-22] MEDS: PANTOPRAZOLE 40 MG TABLET.DR. PO SCH (07:24)
[2020-04-22] MEDS: INSULIN LISPRO 300 UNITS/3 ML VIAL. SQ SCH ×2 (07:32→12:00)
[2020-04-22 07:42] LABS: HEMATOCRIT 36.8 % (39.0-53.0); HEMOGLOBIN 11.9 g/dL (13.0-17.5)
[2020-04-22] MEDS: SENNOSIDES/DOCUSATE 8.6/50MG TABLET. PO SCH (08:13)
[2020-04-22] MEDS: metFORMIN 500 MG TABLET PO SCH ×2 (08:13→17:36)
[2020-04-22] MEDS: ASPIRIN ENTERIC COATED 325 MG TABLET.DR. PO SCH (08:13)
[2020-04-22] MEDS: CELECOXIB 100 MG CAPSULE. PO SCH (08:13)
[2020-04-22] MEDS: MULTIVITAMIN with MINERAL TABLET. PO SCH (08:13)
[2020-04-22] MEDS: CLOPIDOGREL BISULFATE 75 MG TABLET PO SCH (08:13)
[2020-04-22] MEDS: LISINOPRIL 20 MG TABLET PO SCH (08:14)
[2020-04-22] MEDS: METOPROLOL TART IMMED RELEASE 25 MG TABLET. PO SCH (08:14)
[2020-04-22 08:17] VITALS: BP 167/84
--- NOTE | 2020-04-22 12:23 | NUR ---
Eating lunch FSBS held
--- NOTE | 2020-04-22 17:04 | PDOC ---
PROGRESS NOTES Date of Service DATE: 04/22/20 TIME: 17:03 Subjective Subjective Doing well. Planning for discharge today. Objective Vital Signs Vital Signs Date Time Temp Pulse Resp B/P (MAP) Pulse Ox O2 Delivery O2 Flow Rate FiO2 04/22/20 09:52 Room Air 04/22/20 08:17 80 167/84 (111) 04/22/20 06:15 97.9 20 96 97.9 04/19/20 21:43 2.0 Physical Exam MORENITA dressing changed. Incision benign. Labs Laboratory Tests Test 04/20/20 21:01 04/21/20 06:38 04/21/20 11:59 04/21/20 14:04 Glucose (Fingerstick) 158 mg/dL (70-99) 177 mg/dL (70-99) 137 mg/dL (70-99) Hemoglobin 12.1 g/dL (13.0-17.5) Hematocrit 39.1 % (39.0-53.0) Mean Corpuscular Hemoglobin Concent 31 g/dL (31-37) Test 04/21/20 16:45 04/21/20 20:35 04/22/20 06:41 04/22/20 07:04 Glucose (Fingerstick) 141 mg/dL (70-99) 143 mg/dL (70-99) 119 mg/dL (70-99) Hemoglobin 11.9 g/dL (13.0-17.5) Hematocrit 36.8 % (39.0-53.0) Mean Corpuscular Hemoglobin Concent 32 g/dL (31-37) Laboratory Tests Test 04/21/20 20:35 04/22/20 06:41 04/22/20 07:04 Glucose (Fingerstick) 143 mg/dL (70-99) 119 mg/dL (70-99) Hemoglobin 11.9 g/dL (13.0-17.5) Hematocrit 36.8 % (39.0-53.0) Mean Corpuscular Hemoglobin Concent 32 g/dL (31-37) Assessment Assessment POD #3 after TKA Plan Plan of Halfway today. Oral pain meds. Aspirin BID for DVT prophylaxis. Follow up with my office next week. Home Health PT. Justicifation of Admission Dx: Justifications for Admission: Justification of Admission Dx: N/A CONG MARCANO MD Apr 22, 2020 17:04
--- NOTE | 2020-04-22 17:19 | PDOC3 ---
Discharge Summary Visit Information Date of Admission: Apr 19, 2020 Date of Discharge: Apr 22, 2020 Final Diagnosis Osteoarthritis right knee. Aftercare after right total knee arthroplasty. Brief Hospital Course Allergies Allergies Coded Allergies Type Severity Reaction Last Updated Verified Penicillins Allergy Intermediate 04/21/20 Yes apple Allergy Intermediate Nausea and Vomiting 04/19/20 Yes Vital Signs Vital Signs Date Time Temp Pulse Resp B/P (MAP) Pulse Ox O2 Delivery O2 Flow Rate FiO2 04/22/20 09:52 Room Air 04/22/20 08:17 80 167/84 (111) 04/22/20 06:15 97.9 20 96 97.9 Lab Results Laboratory Tests Test 04/20/20 21:01 04/21/20 06:38 04/21/20 11:59 04/21/20 14:04 Glucose (Fingerstick) 158 mg/dL (70-99) 177 mg/dL (70-99) 137 mg/dL (70-99) Hemoglobin 12.1 g/dL (13.0-17.5) Hematocrit 39.1 % (39.0-53.0) Mean Corpuscular Hemoglobin Concent 31 g/dL (31-37) Test 04/21/20 16:45 04/21/20 20:35 04/22/20 06:41 04/22/20 07:04 Glucose (Fingerstick) 141 mg/dL (70-99) 143 mg/dL (70-99) 119 mg/dL (70-99) Hemoglobin 11.9 g/dL (13.0-17.5) Hematocrit 36.8 % (39.0-53.0) Mean Corpuscular Hemoglobin Concent 32 g/dL (31-37) Laboratory Tests Test 04/21/20 20:35 04/22/20 06:41 04/22/20 07:04 Glucose (Fingerstick) 143 mg/dL (70-99) 119 mg/dL (70-99) Hemoglobin 11.9 g/dL (13.0-17.5) Hematocrit 36.8 % (39.0-53.0) Mean Corpuscular Hemoglobin Concent 32 g/dL (31-37) Brief Hospital Course 54 year old who presented with knee osteoarthritis, for elective total knee arthroplasty. The patient underwent total knee arthroplasty under general an esthesia the day of admission. Perioperative antibiotics and DVT prophylaxis were used. Postoperatively physical therapy and case management were consulted. The patient progressed and is stable for discharge. Discharge Information Condition at Discharge: Stable Follow Up: Weeks Disposition/Orders: D/C to Home w/ HH Scheduled Atorvastatin Calcium (Atorvastatin Calcium), 80 MG PO HS, (Reported) Clopidogrel Bisulfate (Clopidogrel), 75 MG PO DAILY, (Reported) Lisinopril (Lisinopril), 20 MG PO DAILY, (Reported) Metformin Hcl (Metformin Hcl), 500 MG PO BID, (Reported) Metoprolol Tartrate (Metoprolol Tartrate), 1 TAB PO BID Omeprazole (Prilosec), 20 MG PO DAILY, (Reported) Scheduled PRN Trazodone Hcl (Trazodone Hcl), 100 MG PO PRN QHS PRN for INSOMNIA, (Reported) Miscellaneous Medications Aspirin (Aspirin), 81 MG PO, (Reported) Multivitamin (Multiple Vitamins), 1 EACH PO, (Reported) Patient Instructions Patient Instructions Continue to weight bearing as tolerated with walker. Keep MORENITA dressing intact and dry. . Follow up with Dr. Brewer's office 04/26/20 at 10:15 AM. Call for appointment if you need to reschedule Continue enteric coated aspirin 325 mg by mouth twice a day for 30 days to prevent blood clots, then after the 30 days, resume your 81 mg daily aspirin. Justicifation of Admission Dx: Justifications for Admission: Justification of Admission Dx: N/A CONG BREWER MD Apr 22, 2020 17:19
--- NOTE | 2020-04-22 17:20 | SNU/HH DC ---
DISCHARGE WITH HOME HEALTH DISCHARGE INFORMATION: Discharge Date: Apr 22, 2020 Final Diagnosis: Osteoarthritis right knee Aftercare after right total knee arthroplasty Condition on Discharge: Stable CODE STATUS: Code Status: Full HOME HEALTH: Face to Face: I certify this patient is under my care and that I, or a nurse practitioner or physician's zoning assistant working with me, had a face to face encounter that meets the physician face to face encounter requirements with this patient on 04/22/2020. Medical Complications: S/P Joint Replacement RN For Eval/Treatment: No Physical Therapy For: Evalulation/Treatment Occupational Therapy For: Evaluation/Treatment Pt Meets Homebound Status: Unsteady balance w/ amb,, Limited distance walking POST DISCHARGE ORDERS: Activity Instructions for Disc: Activity as tolerated Weight Bearing Status after Di: As tolerated Bathing Instructions: Shower-keep dressing dry DIET AFTER DISCHARGE: ADA Wound/Incision Care: Ice to area for comfort CHECKS AFTER DISCHARGE: Checks after discharge: Check blood press - daily FOLLOW-UP: Follow Up With: Dr. Brewer on April at 10:15 Additional Instructions: Continue to weight bearing as tolerated with walker. Keep MORENITA dressing intact and dry. . Follow up with Dr. Brewer's office 04/26/20 at 10:15 AM. Call for carlos ointment if you need to reschedule Continue enteric coated aspirin 325 mg by mouth twice a day for 30 days to prevent blood clots, then after the 30 days, resume your 81 mg daily aspirin. TREATMENT/EQUIPMENT ORDERS: Adaptive Equipment Issued: José Miguel Valdez bag CERTIFICATION STATEMENT: Certification Statement: Certification Statement: Based on the above finding, I certify that this patient is confined to the home and needs intermittent halfway care, physical therapy and/or speech therapy, or continues to need occupational therapy.~ This patient is under my care, and I have initiated the establishment of the plan of care.~ This patient will be followed by myself or a community physician who will periodically review the plan of care. Home Meds Active Scripts Metoprolol Tartrate (METOPROLOL TARTRATE) 25 Mg Tablet, 1 TAB PO BID, #180 TAB 1 Refill Prov:MARINOHOGLENNA FRAN 04/17/16 Reported Medications Atorvastatin Calcium (ATORVASTATIN CALCIUM) 40 Mg Tablet, 80 MG PO HS for FOR CHOLESTEROL, #30 TAB 0 Refills 03/29/20 Lisinopril (LISINOPRIL) 20 Mg Tablet, 20 MG PO DAILY for FOR HYPERTENSION, #30 T AB 0 Refills 03/29/20 Clopidogrel Bisulfate (CLOPIDOGREL) 75 Mg Tablet, 75 MG PO DAILY for TO PREVENT BLOOD CLOTS, #30 TAB 0 Refills 03/29/20 Metformin Hcl (METFORMIN HCL) 850 Mg Tablet, 500 MG PO BID for DIABETES, TAB 0 Refills 04/15/16 Aspirin (ASPIRIN) 81 Mg Tab.chew, 81 MG PO, TAB.CHEW 01/22/14 Multivitamin (MULTIPLE VITAMINS) 1 Each Tablet, 1 EACH PO for vitamin last dose 01/22/14 at 9 am next dose due 01/23/14 at 9 am 12/24/13 Trazodone Hcl (TRAZODONE HCL) 100 Mg Tablet, 100 MG PO PRN QHS PRN for INSOMNIA, TAB Not given this hospitalization. May resume at home as ordered by doctor. 12/24/13 Omeprazole (PRILOSEC) 20 Mg Capsule.dr, 20 MG PO DAILY for reflux, CAP Not given this hospitalization Protonix substituted. May resume at home as ordered by doctor. 12/24/13 CONG BREWER MD Apr 22, 2020 17:20
--- NOTE | 2020-04-22 18:00 | NUR ---
Discharged to home per w/c accompanied by significant other, discharge instructions given with follow up to Dr. Brewer on Sunday April 26, 2020 @ 1015, belongings taken with him, see instruction sheet for details,
--- NOTE | 2020-04-22 18:10 | PATHOLOGY ---
[facility] Accession Number: [id number] . 01 Material submitted: . knee - RIGHT KNEE BONE AND TISSUE. Modifiers: right . 01 Clinical history: . RIGHT KNEE OSTEOARTHRITIS . 02 Diagnosis: Segments of bone and soft tissue, robotic assisted right total knee arthroplasty: - Advanced degenerative arthritis. (JPM/db; 04/22/2020) LBQ 04/22/2020 1534 Local . 02 Electronically signed: . Yovany Jay MD, Pathologist NPI- [id number] . 01 Gross description: . The specimen is received in formalin, labeled "Guillory, Joaquin, right knee bone and tissue" and consists of multiple segments of bone including the tibial plateau with yellow lobulated soft tissue measuring 16.5 x 14.1 x 2.8 cm. The meniscus is present. The articular surfaces are white kohler and roughened to granular with focal eburnation. Clinical Program Manager sections are submitted in A1-A2 with A2 following decalcification. (SDY; 04/20/2020) SYU/SYU 04/22/2020 1533 Local . 02 Pathologist provided ICD-10: M17.11 . 02 CPT . 564946, [id number] Specimen Comment: A courtesy copy of this report has been sent to [phone] Specimen Comment: Report sent to Performed at: 01 [facility] [address] [facility] [address], [place] [id number] MD Adalid Birmingham MD Phone: [phone] Performed at: 02 [facility] [address] [place], [place] [id number] MD Yovany Jay MD Phone: [phone]
== END 2020-04-22 18:35 | disposition home health service (06) | DRG 470 ==
LOC: SURG 08:42 → 4 SOUTHEST 13:17 → OBSVTOIN 04-21 12:40
PROVIDERS: ADMIT Orthopaedic Surgery; ATTEND Orthopaedic Surgery
PROC: 0SRC069 Replacement of Right Knee Joint with Oxidized Zirconium on Polyethylene Synthetic Substitute, Cemented, Open Approach (ICD-10-PCS; principal; 2020-04-21)
PROC: 8E0Y0CZ Robotic Assisted Procedure of Lower Extremity, Open Approach (ICD-10-PCS; 2020-04-21)
DX: M17.11 Unilateral primary osteoarthritis, right knee (principal); E11.9 Type 2 diabetes mellitus without complications; E78.00 Pure hypercholesterolemia, unspecified; I10 Essential (primary) hypertension; K21.9 Gastro-esophageal reflux disease without esophagitis; J45.909 Unspecified asthma, uncomplicated; M21.169 Varus deformity, not elsewhere classified, unspecified knee; M76.51 Patellar tendinitis, right knee; E78.5 Hyperlipidemia, unspecified; Z96.652 Presence of left artificial knee joint; I25.2 Old myocardial infarction; Z88.0 Allergy status to penicillin; Z91.018 Allergy to other foods; Z80.9 Family history of malignant neoplasm, unspecified; Z82.49 Family history of ischemic heart disease and other diseases of the circulatory system
CPT/HCPCS: 36415; 73560; 82962; 85014; 85018; 86850; 86900; 86901; 99406; C1713; G0378; G0379; J0171; J0330; J1100; J1815; J1885; J2270; J2405; J2704; J2795; J3010; J3260; J3370; J3490; J7120; 97116-GP; 97150-GP; 97530-GP; 97535-GO; A4461; C1769